=== PATIENT | female | born 1970 | race Caucasian/White ===

== ENCOUNTER 2019-02-10 10:26 | Emergency (ER) | payer OTHER ==
[~2019-02-10] VITALS: Ht 167.6 cm; Wt 89.8 kg
[2019-02-10] MEDS ORDERED: DEPAKOTE ER500 MG (10:40)
== END 2019-02-10 15:23 | disposition home or self-care (01) ==
LOC: ER 10:26
DX: M54.32 Sciatica, left side (principal)